=== PATIENT | male | born 1990 | race African-American/Black ===

== ENCOUNTER 2018-06-08 20:49 | Emergency (ER) | payer OTHER ==
--- NOTE | 2018-06-08 22:16 | ER ---
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 Transition of care: patient was not received from another setting of care. Onset of symptoms was June 08, 2018. Risk Assessment: Do you want to hurt yourself or someone else? Patient reports no desire to harm self or others. Initial Sepsis Screen: Does the patient meet any 2 criteria? No. Patient's initial sepsis screen is negative. Does the patient have a suspected source of infection? No. Patient's initial sepsis screen is negative. Care prior to arrival: Splint applied. 21:00 Method Of Arrival: EMS: [facility] tl3 21:00 Acuity: CHRISTOPHER 3 tl3 Triage Assessment: 21:00 General: Appears slender, well groomed, well developed, well nourished, Behavior is tl3 calm, cooperative, appropriate for age. Pain: Complains of pain in right foot Pain currently is 7 out of 10 on a pain scale. EENT: No signs and/or symptoms were reported regarding the EENT system. Neuro: Cardiovascular: Patient's skin is warm and dry. Respiratory: Airway is patent Respiratory effort is even, unlabored, Respiratory pattern is regular, symmetrical. GI: No signs and/or symptoms were reported involving the gastrointestinal system. : No signs and/or symptoms were reported regarding the genitourinary system. Derm: No signs and/or symptoms reported regarding the dermatologic system. Musculoskeletal: Reports pain in right foot. Injury Description: hyper flection of right foot. Historical: - Allergies: 22:06 No Known Allergies; tl3 - PMHx: 22:06 None; tl3 - PSHx: 22:06 None; tl3 - Immunization history:: Adult Immunizations unknown. - Social history:: Smoking status: unknown. - Ebola Screening: : No symptoms or risks identified at this time. Screenin:19 Abuse screen: Denies threats or abuse. Nutritional screening: No deficits noted. tl3 Tuberculosis screening: No symptoms or risk factors identified. Fall Risk None identified. Assessment: 21:17 General: Appears distressed, uncomfortable, well groomed, well developed, well tl3 nourished, Behavior is calm, cooperative, appropriate for age. Neuro: Level of Consciousness is awake, alert, obeys commands, Oriented to person, place, time, situation, Appropriate for age. Cardiovascular: Heart tones Capillary refill < 3 seconds Patient's skin is warm and dry. Rhythm is sinus tachycardia. Respiratory: Airway is patent Respiratory effort is even, unlabored, Respiratory pattern is regular, symmetrical. GI: Abdomen is round Bowel sounds present X 4 quads. : No signs and/or symptoms were reported regarding the genitourinary system. EENT: No signs and/or symptoms were reported regarding the EENT system. Derm: No signs and/or symptoms reported regarding the dermatologic system. 21:17 Pain: Complains of pain in chest. tl3 21:29 Reassessment: No changes from previously documented assessment. Patient is alert, tl3 oriented x 3, equal unlabored respirations, skin warm/dry/pink. 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 tl3 22:07 Reassessment: Patient appears in no apparent distress at this time. No changes from tl3 previously documented assessment. Patient and/or family updated on plan of care and expected duration. Pain level reassessed. Patient is alert, oriented x 3, equal unlabored respirations, skin warm/dry/pink. Vital Signs: 21:19 BP 133 / 79; Pulse 101; Resp 18; Pulse Ox 96% on R/A; tl3 22:07 BP 123 / 76; Pulse 60; Resp 18; Pulse Ox 98% ; tl3 ED Course: 20:50 Patient arrived in ED. ds1 20:56 Jessica Pérez FNP-C is PHCP. snw 20:56 Alek Palacios MD is Attending Physician. snw 20:58 PHCP role handed off by Jessica Pérez FNP-C jr8 20:58 Cornelio Iniguez PA is PHCP. jr8 21:00 Arm band placed on right wrist. tl3 21:17 Fina Lerma RN is Primary Nurse. tl3 21:19 Patient has correct armband on for positive identification. Placed in gown. Bed in low tl3 position. Call light in reach. Side rails up X 1. Adult w/ patient. Pulse ox on. NIBP on. 21:19 No provider procedures requiring assistance completed. tl3 21:21 ED physician to see patient. Pt visited by Friend. tl3 21:22 X-ray completed. Portable x-ray completed in exam room. Patient tolerated procedure kw well. 21:24 XRAY Foot RIGHT 3 View In Process Unspecified. EDMS 21:26 Triage completed. tl3 21:29 Warm blanket given. tl3 21:29 Patient did not have IV access during this emergency room visit. tl3 22:15 Chris Hassan DPM is Referral Physician. jr8 22:49 Crutch training done. Homer wrap to right ankle short walking boot to right foot. mg2 Administered Medications: No medications were administered Outcome: 22:15 Discharge ordered by MD. jr8 22:49 Discharged to home ambulatory, with crutches. mg2 22:49 Condition: stable 22:49 Discharge instructions given to patient, Instructed on discharge instructions, follow up and referral plans. Demonstrated understanding of instructions, follow-up care, crutch walking, splint care. 22:50 Patient left the ED. mg2 Signatures: Dispatcher [employer] EDMS Jessica Pérez, PRINTER HELPER-C PRINTER HELPER-Csnw Giselle Jarvis ds1 Susu De Jesus Josh, PA PA jr8 Fina Lerma RN RN tl3 Harsh Lomax RN RN mg2 Corrections: (The following items were deleted from the chart) 21:24 21:17 Pain: Denies pain. tl3 tl3 22:04 21:17 General: Appears distressed, uncomfortable, well groomed, well developed, well tl3 nourished, Behavior is calm, cooperative, appropriate for age, Smells of alcohol, Reports possible seizure tonight tl3 22:04 21:17 Musculoskeletal: No signs and/or symptoms reported regarding the musculoskeletal tl3 system. tl3 22:05 21:19 PMHx: alcholic; tl3 tl3 22:05 21:19 Social history: Smoking status: Patient/guardian denies using tobacco, never tl3 smoked, Patient uses alcohol, on a daily basis. 24-30 beers a day. tl3 22:06 21:19 Inserted saline lock: 20 gauge in left antecubital area, using aseptic technique. tl3 tl3
--- NOTE | 2018-06-08 22:16 | EDPHYS ---
Physician Documentation [facility] Name: Tyron Fonseca Age: 28 yrs Sex: Male : 1990 Arrival Date: 06/08/2018 Time: 20:50 Bed 24 Private MD: ED Physician Alek Palacios HPI: 06/08 21:05 This 28 yrs old Male presents to ER via Unassigned with complaints of foot pain. jr8 21:05 The patient presents with pain. The complaints affect the right foot. Onset: The jr8 symptoms/episode began/occurred acutely, today. Modifying factors: The symptoms are alleviated by nothing, the symptoms are aggravated by weight bearing, movement. Associated signs and symptoms: The patient has no apparent associated signs or symptoms. Severity of symptoms: At their worst the symptoms were moderate, in the emergency department the symptoms are unchanged. The patient has not experienced similar symptoms in the past. The patient has not recently seen a physician. 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 Pain since incident . Historical: - Allergies: 22:06 No Known Allergies; tl3 - PMHx: 22:06 None; tl3 - PSHx: 22:06 None; tl3 - Immunization history:: Adult Immunizations unknown. - Social history:: Smoking status: unknown. - Ebola Screening: : No symptoms or risks identified at this time. ROS: 21:05 Eyes: Negative for injury, pain, redness, and discharge, ENT: Negative for injury, jr8 pain, and discharge, Neck: Negative for injury, pain, and swelling, Cardiovascular: Negative for chest pain, palpitations, and edema, Respiratory: Negative for shortness of breath, cough, wheezing, and pleuritic chest pain, Abdomen/GI: Negative for abdominal pain, nausea, vomiting, diarrhea, and constipation, Back: Negative for injury and pain, Skin: Negative for injury, rash, and discoloration, Neuro: Negative for headache, weakness, numbness, tingling, and seizure. 21:05 MS/extremity: Positive for pain, tenderness, of the Pain right foot. Exam: 21:05 Cardiovascular: Regular rate and rhythm with a normal S1 and S2. No gallops, murmurs, jr8 or rubs. Normal PMI, no JVD. No pulse deficits. Respiratory: Lungs have equal breath sounds bilaterally, clear to auscultation and percussion. No rales, rhonchi or wheezes noted. No increased work of breathing, no retractions or nasal flaring. Skin: Warm, dry with normal turgor. Normal color with no rashes, no lesions, and no evidence of cellulitis. Neuro: Awake and alert, GCS 15, oriented to person, place, time, and situation. Cranial nerves II-XII grossly intact. Motor strength 5/5 in all extremities. Sensory grossly intact. Cerebellar exam normal. Normal gait. 21:05 Musculoskeletal/extremity: Extremities: grossly normal except: noted in the right foot: pain, tenderness, Point tenderness to forefoot over 1st toe , ROM: limited active range of motion due to pain, limited passive range of motion due to pain, Circulation is intact in all extremities. Sensation intact. Vital Signs: 21:19 BP 133 / 79; Pulse 101; Resp 18; Pulse Ox 96% on R/A; tl3 22:07 BP 123 / 76; Pulse 60; Resp 18; Pulse Ox 98% ; tl3 MDM: 20:58 Patient medically screened. 8 22:15 Data reviewed: vital signs, nurses notes, radiologic studies, plain films, and as a jr8 result, I will discharge patient. Data interpreted: Pulse oximetry: on room air is 98 %. Interpretation: normal. Counseling: I had a detailed discussion with the patient and/or guardian regarding: the historical points, exam findings, and any diagnostic results supporting the discharge/admit diagnosis, radiology results, the need for outpatient follow up, a net wpf developer, to return to the emergency department if symptoms worsen or persist or if there are any questions or concerns that arise at home. 06/08 20:58 Order name: XRAY Foot RIGHT 3 View; Complete Time: 22:37 jr8 06/08 21:53 Order name: Ortho shoe; Complete Time: 22:52 rg2 Administered Medications: No medications were administered Disposition: 06/08/18 22:15 Discharged to Home. Impression: Pain in foot and toes, Chip fracture 1st metatarsal . - Condition is Stable. - Discharge Instructions: Foot Pain. - Prescriptions for Ibuprofen 800 mg Oral Tablet - take 1 tablet by ORAL route every 12 hours As needed take with food; 20 tablet. - Medication Reconciliation Form, Thank You Letter, Antibiotic Education, Prescription Opioid Use form. - Follow up: Chris Hassan DPM; When: 1 week; Reason: If symptoms return, Recheck today's complaints, Continuance of care, Re-evaluation by your physician. - Problem is new. - Symptoms have improved. Addendum: 06/12/2018 17:37 Co-signature as Attending Physician, Alek Palacios MD. g s Signatures: Dispatcher [employer] EDMS Ayaka Stewart rg2 Cornelio Iniguez, PA PA jr8 Alek Palacios MD MD Fina Lerma, RN RN tl3 Harsh Lomax RN RN mg2 Corrections: (The following items were deleted from the chart) 06/08 22:05 21:19 PMHx: alcholic; tl3 tl3 22:05 21:19 Social history: Smoking status: Patient/guardian denies using tobacco, never tl3 smoked, Patient uses alcohol, on a daily basis. 24-30 beers a day. tl3 22:39 22:15 06/08/2018 22:15 Discharged to Home. Impression: Pain in foot and toes. Condition jr8 is Stable. Forms are Medication Reconciliation Form, Thank You Letter, Antibiotic Education, Prescription Opioid Use. Follow up: Dr. Chris Hassan; When: 1 week; Reason: If symptoms return, Recheck today's complaints, Continuance of care, Re-evaluation by your physician. Problem is new. Symptoms have improved. jr8 22:50 22:39 06/08/2018 22:15 Discharged to Home. Impression: Pain in foot and toes; Chip mg2 fracture 1st metatarsal . Condition is Stable. Discharge Instructions: Foot Pain. Prescriptions for Ibuprofen 800 mg Oral Tablet - take 1 tablet by ORAL route every 12 hours As needed take with food; 20 tablet. and Forms are Medication Reconciliation Form, Thank You Letter, Antibiotic Education, Prescription Opioid Use. Follow up: Dr. Chris Hassan; When: 1 week; Reason: If symptoms return, Recheck today's complaints, Continuance of care, Re-evaluation by your physician. Problem is new. Symptoms have improved. jr8
--- NOTE | 2018-06-08 22:18 | RAD REPORT ---
EXAM DESCRIPTION: RAD - Foot Right 3 View - 06/08/2018 9:23 pm CLINICAL HISTORY: Plantar foot pain following trauma, specific site of injury not detailed. COMPARISON: None. FINDINGS: A small triangular shaped bone density is present along the lateral margin of the first me tatarsal head. This has the appearance of a small avulsion from the lateral margin metatarsal head. T his is an unusual fracture presentation. Correlation is needed for any point tenderness at the first metatarsal head and correlation with site of trauma. Elsewhere in the foot no fracture or acute bone finding identifiable. No air or foreign body in the soft tissues. IMPRESSION: Small chip fracture is present from the lateral margin first metatarsal head. This is an unusual fracture presentation. Correlation is needed with any focal symptoms at the first metatarsal head.
== END 2018-06-08 22:50 | disposition home or self-care (01) ==
LOC: ER 20:49
DX: S92.311A Displaced fracture of first metatarsal bone, right foot, initial encounter for closed fracture (principal); W31.9XXA Contact with unspecified machinery, initial encounter; Y93.9 Activity, unspecified; Y92.89 Other specified places as the place of occurrence of the external cause
CPT/HCPCS: 99284